=== PATIENT | male | born 1950 | race Two or more races ===

== ENCOUNTER → 2025-05-16 | Outpatient (CLI) | payer MEDICARE, SELFPAY ==
--- NOTE | 2025-05-16 15:00 | XR_ITS ---
Examination: CT chest, without intravenous contrast. Sagittal and coronal 2-D reconstructions. Exam date and time: May 16, 2025, 1517 hours INDICATIONS: Smoking history 40 years CTDI:vol (mGy) 7.69 DLP: (mGycm) 325 Technique: Multiple 3.0 mm axial sections of the chest to been obtained. Bone and lung density settings are obtained. Sagittal and coronal 2-D reconstructions have been obtained. Low dose protocols were performed. One or more of the following dose reduction techniques were used; automated exposure control, adjustment of the mA and/or KV according to patient size, use of iterative reconstruction technique. Findings: Thoracic aortic calcification no aneurysmal dilatation Pulmonary artery segments are not enlarged No paratracheal or tracheobronchial bronchopulmonary adenopathy 10 mm pulmonary nodule left upper lobe image 112 5 mm pulmonary nodule right upper lobe image 144 9 mm pulmonary nodule left lower lobe image 197 No lobar pneumonia or pulmonary edema Hepatic cysts Spleen is not enlarged Contracted gallbladder No pancreatic mass No hydronephrosis Prominent osteopenia IMPRESSION: Noncalcified pulmonary nodules as above, consider early pulmonary nodular metastatic disease, recommend 3 to 6-month follow-up CT chest without contrast
== END | disposition home or self-care (01) ==
PROVIDERS: Referring Provider Family Medicine; Visit Provider Family Medicine
DX: R91.8 Other nonspecific abnormal finding of lung field (principal); Z87.891 Personal history of nicotine dependence
CPT/HCPCS: 71271